=== PATIENT | female | born 1965 | race African-American/Black ===

== ENCOUNTER 2025-04-12 16:41 | Emergency (ER) | payer OTHER, SELFPAY ==
[2025-04-12 16:44] VITALS: BP 156/84
[2025-04-12 19:40] LABS: Hematocrit 40.0 % (37.0-47.0); Hemoglobin 12.6 g/dL (12.0-16.0); Mean Corp Hgb Conc. 31.5 g/dL (33.0-37.0); Mean Corpuscular Volume 72.9 fL (81.0-99.0); Platelet Count 240 10^3/uL (130-400); Red Cell Dist. Width 15.7 % (11.5-14.5)
[2025-04-12 20:05] LABS: ALT (SGPT) 10 U/L (0-35); AST (SGOT) 21 U/L (14-36); Albumin 4.4 g/dl (3.5-5.0); Alkaline Phosphatase 60 U/L (38-126); Blood Urea Nitrogen 13 mg/dl (7-17); Calcium 10.0 mg/dl (8.4-10.2); Carbon Dioxide 28 mmol/L (22-30); Chloride 105 mmol/L (98-107); Glucose 122 mg/dl (70-99); Potassium 3.8 mmol/L (3.5-5.1); Salicylate < 1.0 mg/dl (2.0-20.0); Sodium 140 mmol/L (135-145); Total Protein 8.4 g/dl (6.3-8.2); eGFR > 60.00
--- NOTE | 2025-04-12 20:22 | EDRN ---
1800- Patient ate entire dinner tray including tomato soup, grilled cheese, pudding, jesu rowena, and water.
[2025-04-12 21:53] LABS: Acetaminophen < 10 ug/ml (10-30)
--- NOTE | 2025-04-12 21:55 | ED.GENMED ---
History of Present Illness
General
Chief Complaint: Crisis Evaluation
Source: patient
Exam Limitations: none
Time Seen by Provider: 04/12/25 16:54
Nursing documentation reviewed up to this point in time: agreed with
History of Present Illness
History of Present Illness:
Patient with history of anxiety and depression, presents to ED secondary to increased depression along with intermittent suicidal thoughts, not present currently. Denies homicidal ideation. Patient otherwise has no complaints. Denies recent
illness. Denies recent change in medications. Patient does have history of suicidal attempts.
Review of Systems
Review of Systems
Allergies reviewed?: Yes
All Other Systems: ROS reviewed and negative except as documented in HPI and ROS
Constitutional: Reports no symptoms
ABD/GI: Reports no symptoms
Skin: Reports no symptoms
Neurological: Reports no symptoms
Psychiatric: Reports depression and suicidal
Phy Exam
Physical Exam
Physical Exam:
Physical Exam
General: no apparent distress, not acutely ill. afebrile
Head: nc/at. eomi
Neck: supple. no meningeal signs.
Heart: s1/s2 regular rate and rhythm
Lungs: no acute respiratory distress. clear bilaterally
Abdomen: normal bowel sounds. not tender.
Neuro: alert and oriented x 3. no focal neurological deficits
Skin: no rash
Psychiatric: well kept. interactive and cooperative
Extremities: no edema. no calf tenderness.
Course
Orders/Labs/Results
Orders:
Orders
04/12/25 16:51
1:1 Observation - Suicide/ Violent Behavior As Directed
04/12/25 16:55
Crisis Consult Urgent
Reason for Consult: depression/anxiety
04/12/25 19:08
Electrocardiogram (*1) Urgent
Reason for Study: QTc Monitoring
EKG- Treatment ONCE
04/12/25 19:23
Acetaminophen Urgent
Alcohol Urgent
Complete Blood Count/No Diff Urgent
Comprehensive Metabolic Panel Urgent
Salicylate Urgent
04/12/25 22:36
Urine Drug Abuse Screen Urgent
Date Specimen was Collected: 04/12/25
Time Specimen was Collected: 19:16
Abnormal Lab Results
04/12/25
19:23
RBC 5.49 H 10^6/uL
(4.20-5.40)
MCV 72.9 L fL
(81.0-99.0)
MCH 23.0 L pg
(27.0-31.0)
MCHC 31.5 L g/dL
(33.0-37.0)
RDW 15.7 H %
(11.5-14.5)
MPV 10.9 H fL
(7.4-10.4)
Creatinine 0.5 L mg/dL
(0.6-1.0)
Glucose 122 H mg/dl
(70-99)
Total Protein 8.4 H g/dl
(6.3-8.2)
Salicylates < 1.0 L mg/dl
(2.0-20.0)
Acetaminophen < 10 L ug/ml
(10-30)
04/12/25 19:23
04/12/25 19:23
Vital Signs
Initial and Last Documented VS:
Initial Vital Signs
Temp Pulse Resp BP Pulse Ox
98.2 F 64 16 156/84 99
04/12/25 16:44 04/12/25 16:44 04/12/25 16:44 04/12/25 16:44 04/12/25 16:44
Last Documented Vital Signs
Temp Pulse Resp BP Pulse Ox
98.2 F 64 16 156/84 99
04/12/25 16:44 04/12/25 16:44 04/12/25 16:44 04/12/25 16:44 04/12/25 21:55
MDM/Problems Addressed
MDM/Problems Addressed:
Patient is medically cleared and will be transitioned to inpatient psychiatric facility for further evaluation and treatment.
*Pulse Oximetry
SaO2: 99
Oxygen Mode of Delivery: Room air
Patient hypoxic: no
*Critical Care Note
Total Time (30-74mins, 75-104mins- exclusive of procedures): Not Applicable
ED Attending Note
-
Portions of this chart may have been created with voice recognition software.� Occasional wrong word or��sound alike� substitutions may have occurred due to the inherent limitations of voice recognition software.
Discharge Plan
Departure
Patient Disposition: Psych Facility
Date of Disposition: 04/12/25
Time of Disposition: 21:55
Patient Status:: 201
Discharge Problem:
Depression
Interventions
Interventions:
*Risk Screen - Suicide Last Done: 04/12/25 16:44
*General Assessment Last Done: 04/12/25 17:16
*Neglect/Abuse Screening Last Done: 04/12/25 16:44
*ED- Fall Risk Assessment Last Done: 04/12/25 17:16
*Nursing Disposition Last Done: 04/12/25 23:25
ED-Psychological Assessment Last Done: 04/12/25 17:16
Discharge Date and Time
Print Language: [id number]
== END 2025-04-12 23:25 ==
LOC: EMR 16:41
PROVIDERS: EMERGENCY PHYSICIAN Emergency Medicine
DX: F32.A Depression, unspecified (principal); F41.9 Anxiety disorder, unspecified; Z91.51 Personal history of suicidal behavior
CPT/HCPCS: 99285; 80053; 80143; 80179; 82077; 85027; 93005